=== PATIENT | female | born 1995 | race Caucasian/White ===

== ENCOUNTER 2021-04-13 09:24 | Outpatient (CLI) | payer SELFPAY | END 2021-04-13 09:25 | disposition home or self-care (01) | LOC: MADLAB 09:24 → MADRAD 09:25 | PROVIDERS: ATTEND Physician Assistant | DX: M89.9 Disorder of bone, unspecified (principal) ==

== ENCOUNTER 2023-12-09 12:25 | Emergency (ER) | payer SELFPAY | END 2023-12-09 13:00 | disposition home or self-care (01) | LOC: MADERS 12:25 | DX: H66.92 Otitis media, unspecified, left ear (principal); H60.92 Unspecified otitis externa, left ear; H73.92 Unspecified disorder of tympanic membrane, left ear; I10 Essential (primary) hypertension | CPT/HCPCS: 99282 ==

== ENCOUNTER 2024-01-19 06:13 | Emergency (ER) | payer SELFPAY ==
[2024-01-19 07:08] LABS: Hematocrit 39.9 % (36.0-47.0); Hemoglobin 12.7 g/dL (12.0-16.0)
[2024-01-19 07:15] LABS: BHCG - Serum Negative (NEGATIVE); Pregs Control Background? CLEAR/WHITE (CLR/WHITE); Pregs Control Bar Appear? YES (CONTROL BAR)
[2024-01-19 08:01] LABS: Hematocrit 40.4 % (36.0-47.0); Hemoglobin 12.6 g/dL (12.0-16.0)
== END 2024-01-19 08:35 | disposition home or self-care (01) ==
LOC: MADERS 06:13
DX: N93.9 Abnormal uterine and vaginal bleeding, unspecified (principal); F41.9 Anxiety disorder, unspecified; D64.9 Anemia, unspecified; M32.9 Systemic lupus erythematosus, unspecified; F17.290 Nicotine dependence, other tobacco product, uncomplicated
CPT/HCPCS: 36415; 84703; 85014; 85018; 99284

== ENCOUNTER 2024-06-18 15:23 | Emergency (ER) | payer SELFPAY ==
[2024-06-21 10:46] LABS: Chlamydia by PCR, Vaginal Swab Not Detected (NotDetected); GC by PCR, Vaginal Swab Not Detected (NotDetected); Tric.vaginalis PCR,Vaginal Sw Not Detected (NotDetected)
== END 2024-06-18 18:46 | disposition home or self-care (01) ==
LOC: MADERS 15:23
DX: N13.2 Hydronephrosis with renal and ureteral calculous obstruction (principal); F17.290 Nicotine dependence, other tobacco product, uncomplicated
CPT/HCPCS: 51701; 74176; 87086; 87491; 87591; 87661; 96374; 96375

== ENCOUNTER 2024-11-22 23:54 | Emergency (ER) | payer SELFPAY | END 2024-11-23 01:45 | disposition home or self-care (01) | LOC: MADERS 23:54 | DX: R05.9 Cough, unspecified (principal); F17.290 Nicotine dependence, other tobacco product, uncomplicated | CPT/HCPCS: 71046; 87400; 87426 ==